=== PATIENT | female | born 1985 | race Two or more races ===

== ENCOUNTER 2021-03-13 11:19 | Emergency (ER) | payer SELFPAY ==
[~2021-03-13] VITALS: Ht 160 cm; Wt 76.2 kg
[2021-03-13 12:02] VITALS: BP 127/82
[2021-03-13] MEDS ORDERED: cefTRIAXone SOD 1,000 MG VL IM ONE (12:15)
== END 2021-03-13 12:50 | disposition home or self-care (01) ==
LOC: ER 11:19
DX: J03.90 Acute tonsillitis, unspecified (principal)
CPT/HCPCS: 71045; 81002; 81025; 96372; 99284; J0696